=== PATIENT | female | born 1945 | race African-American/Black ===

== ENCOUNTER 2018-07-31 16:08 | Emergency (ER) | payer OTHER ==
[~2018-07-31] VITALS: Ht 157.5 cm; Wt 88.5 kg
[2018-07-31 16:10] VITALS: BP 200/94
[2018-07-31] MEDS ORDERED: ALDACTONE50 MG PO (16:19)
[2018-07-31] MEDS ORDERED: LISINOPRIL2.5 MG PO (16:19)
[2018-07-31] MEDS ORDERED: COUMADIN 5 MG TA5 M1 PO (16:20)
[2018-07-31] MEDS ORDERED: CARVEDILOL3.125 MG PO (16:20)
[2018-07-31] MEDS ORDERED: PLAVIX 75 MG TA75 M1 PO (16:21)
[2018-07-31] MEDS ORDERED: CHILDREN'S ASPI81 M1 PO (16:21)
[2018-07-31] MEDS ORDERED: HYDROCHLOROTH12.5 M1 PO (16:21)
[2018-07-31 16:42] LABS: ABSOLUTE EOSINOPHILS 0.1 thou/uL (0.0-0.7); ABSOLUTE MONOCYTES 0.3 thou/uL (0.0-1.2); BASOPHILS 0.5 %; EOSINOPHILS 1.8 %; HEMATOCRIT 42.8 % (37.0-47.0); HEMOGLOBIN 13.7 gm/dL (12.0-15.0); LYMPHOCYTES 17.8 %; MCH 25.8 pg (26.0-34.0); MCV 80.4 fL (80.0-100.0); MONOCYTES 5.9 %; MPV 7.3 fl. (7.2-11.1); NUCLEATED RBCS 0 /100WBC; PLATELET COUNT* 423 thou/uL (150-400); RBC 5.32 mil/uL (4.20-5.00); RDW-CV 17.6 % (10.5-14.5); WBC 5.4 thou/uL (4.0-11.0)
[2018-07-31 16:51] LABS: ANION GAP 4 mmol/L (7-16); APTT 37.8 Seconds (25.0-31.3); BUN 30 mg/dL (7-18); CALCIUM 9.4 mg/dL (8.5-10.1); CHLORIDE 105 mmol/L (98-107); CO2 28 mmol/L (21-32); CREATININE 1.3 mg/dL (0.6-1.3); GLUCOSE 118 mg/dL (70-99); INR 1.6; PROTIME 16.3 Seconds (9.20-11.50); SODIUM 137 mmol/L (136-145)
[2018-07-31 16:58] LABS: ALBUMIN 3.3 g/dL (3.4-5.0); ALKALINE PHOSPHATASE 96 U/L (46-116); SGOT 22 U/L (15-37); SGPT 26 U/L (30-65); TOTAL BILIRUBIN 0.4 mg/dL (<0.1-1.0); TOTAL PROTEIN 7.1 g/dL (6.4-8.2); TROPONIN-I LEVEL <0.06 ng/mL (<0.06)
[2018-07-31] MEDS ORDERED: VITAMIN D3400 UNI2 PO (17:00)
[2018-07-31] MEDS ORDERED: CLEOCIN HCL150 MG PO (17:04)
[2018-07-31] MEDS ORDERED: KEFLEX500 M1 PO (17:04)
--- NOTE | 2018-08-01 11:55 | EKG ---
[place] [address] ELECTROCARDIOGRAM REPORT Name: NATALIIA ALARIE Yo Room: [facility]#: [id number] Admission: 07/31/18 Attend Phys: Discharge: 07/31/18 Date of : 49 Report #: [id number] THIS REPORT FOR: //name// [facility] ED Test Date: 2018-07-31 Test Time: 16:17:15 Pat Name: CHLOE AL Department: Room: Gender: F Resident Care Associate: Saundra KNOWLES : 1945 Requested By: Tiago Villegas Order Number: [id number] MD: John Nevarez Measurements Intervals [place] Rate: 70 P: 51 NE: 179 QRS: -34 QRSD: 99 T: 37 QT: 389 QTc: 420 Interpretive Statements Sinus rhythm Probable left atrial enlargement Left axis deviation Anterior infarct, old No previous ECG available for comparison Electronically Signed On 08-01-2018 11:55:18 CDT by John Nevarez [email or web address] <ELECTRONICALLY SIGNED> By: John Nevarez MD, [facility] 08/01/18 1155 161 161 John Nevarez MD, [facility] /EPI
== END 2018-07-31 17:17 | disposition home or self-care (01) ==
LOC: M.ERS 16:08
PROVIDERS: Family Medicine
DX: L03.211 Cellulitis of face (principal); I10 Essential (primary) hypertension; I25.2 Old myocardial infarction